=== PATIENT | female | born 1970 | race Caucasian/White ===

== ENCOUNTER 2019-10-03 07:42 | Outpatient (CLI) | payer BC ==
[2019-10-03 10:18] LABS: BASOPHILS % (AUTO) 0.8 %; EOSINOPHILS # (AUTO) 0.2 10^3/uL (0.0-0.7); EOSINOPHILS % (AUTO) 3.5 %; HGB - HEMOGLOBIN 12.8 g/dL (12.0-16.0); LYMPHOCYTES # (AUTO) 1.9 10^3/uL (1.5-3.5); LYMPHOCYTES % (AUTO) 38.4 %; MEAN CORPUSCULAR HEMOGLOBIN 29.8 pg (27.0-31.0); MEAN CORPUSCULAR HGB CONC 31.8 g/dL (32.0-36.0); MEAN CORPUSCULAR VOLUME 93.9 fL (81.0-99.0); MEAN PLATELET VOLUME 11.5 fL (7.9-10.8); MONOCYTES # (AUTO) 0.4 10^3/uL (0.0-1.0); NEUTROPHILS # (AUTO) 2.4 10^3/uL (1.5-6.6); NEUTROPHILS % (AUTO) 48.1 %; PLT - PLATELET COUNT 330 10^3/uL (130-450); RED BLOOD COUNT 4.29 10^6/uL (4.20-5.40); RED CELL DISTRIBUTION WIDTH 13.1 % (12.0-15.0); WHITE BLOOD COUNT 4.9 x10^3/uL (4.8-10.8)
[2019-10-03 10:31] LABS: ALBUMIN 4.5 g/dL (3.2-5.5); ALBUMIN/GLOBULIN RATIO 1.7 (1.0-2.2); ALKALINE PHOSPHATASE 37 IU/L (42-121); ALT ALANINE AMINOTRANSFERASE 23 IU/L (10-60); AST ASPARTATE AMINOTRANSFERASE 21 IU/L (10-42); BILIRUBIN,TOTAL 0.8 mg/dL (0.2-1.0); BUN - BLOOD UREA NITROGEN 18 mg/dL (6-20); CARBON DIOXIDE - CO2 27 mmol/L (21-32); CHLORIDE 102 mmol/L (101-111); CHOL/HDL RATIO 2.3 (<4.4); CHOLESTEROL 230 mg/dL; CREATININE 0.8 mg/dL (0.4-1.0); GFR - MDRD 77 (>89); GLUCOSE 84 mg/dL (70-100); HDL CHOLESTEROL 98 mg/dL; LDL CHOLESTEROL,CALCULATED 123 mg/dL; LDL/HDL RATIO 1.3 (<4.4); SODIUM 137 mmol/L (135-145); TOTAL PROTEIN 7.2 g/dL (6.7-8.2); VLDL CHOLESTEROL 9 mg/dL
[2019-10-03 10:41] LABS: THYROID STIMULATING HORMONE 2.23 uIU/mL (0.34-5.60)
[2019-10-03 10:44] LABS: FREE T4 (FREE THYROXINE) 0.69 ng/dL (0.58-1.64)
== END 2019-10-03 07:43 | disposition home or self-care (01) ==
LOC: LAB.S 07:42
PROVIDERS: ATTEND Physician Assistant
DX: E04.1 Nontoxic single thyroid nodule (principal); Z87.42 Personal history of other diseases of the female genital tract; Z13.220 Encounter for screening for lipoid disorders; Z13.1 Encounter for screening for diabetes mellitus; Z12.4 Encounter for screening for malignant neoplasm of cervix
CPT/HCPCS: 36415; 80053; 80061; 83721; 84439; 84443; 85025

== ENCOUNTER 2020-06-01 07:00 | Outpatient (CLI) | payer OTHER, BC ==
--- NOTE | 2020-06-01 09:49 | XRAY Report ---
PROCEDURE: Foot 3 View LT INDICATIONS: SPRAIN OF TARSAL LIGAMENT LEFT FOOT TECHNIQUE: 3 views of the foot were acquired. COMPARISON: None FINDINGS: Bones: No fractures or dislocations. No suspicious bony lesions. Soft tissues: No tibiotalar joint effusion. Achilles tendon appears normal. IMPRESSION: No acute fracture. No osseous lesion. If symptoms and/or clinical suspicion for pathology continue, f urther assessment with repeat plain films, or advanced imaging (e.g., CT, MRI, or bone scan) is recom mended for further assessment. Reviewed by: Marisela Weaver MD on 06/01/2020 9:48 AM [facility] Approved by: Marisela Weaver MD on 06/01/2020 9:48 AM PST Station ID: [id number]
== END 2020-06-01 23:59 | disposition home or self-care (01) ==
LOC: DI.S 07:00
PROVIDERS: ATTEND Emergency Medicine
DX: S93.612A Sprain of tarsal ligament of left foot, initial encounter (principal)

== ENCOUNTER 2020-07-25 16:04 | Outpatient (CLI) | payer OTHER, BC ==
--- NOTE | 2020-07-25 17:02 | XRAY Report ---
PROCEDURE: Ankle 3 View LT INDICATIONS: SPRAIN OF TARSAL LIGAMENT OF LEFT FOOT TECHNIQUE: 3 views of the ankle were acquired. COMPARISON: None FINDINGS: Bones: No fractures or dislocations. Ankle mortise is normally aligned. No suspicious bony lesions . Soft tissues: No tibiotalar joint effusion. Achilles tendon appears normal. IMPRESSION: No ankle fracture or dislocation. Ankle mortise is congruent. Reviewed by: Giacomo Hays MD on 07/25/2020 5:01 PM PST Approved by: Giacomo Hays MD on 07/25/2020 5:01 PM PST Station ID: [id number]
--- NOTE | 2020-07-25 17:03 | XRAY Report ---
PROCEDURE: Foot 3 View LT INDICATIONS: SPRAIN OF TARSAL LIGAMENT OF LEFT FOOT TECHNIQUE: 3 views of the foot were acquired. COMPARISON: 06/01/2020 FINDINGS: Bones: No fractures or dislocations. No suspicious bony lesions. Soft tissues: No tibiotalar joint effusion. Achilles tendon appears normal. IMPRESSION: No left foot fracture or dislocation is seen. No significant changes from previous study. Reviewed by: Giacomo Hays MD on 07/25/2020 5:01 PM PST Approved by: Giacomo Hays MD on 07/25/2020 5:01 PM PST Station ID: [id number]
== END 2020-07-25 23:59 | disposition home or self-care (01) ==
LOC: DI.S 16:04
PROVIDERS: ATTEND Emergency Medicine
DX: S93.612A Sprain of tarsal ligament of left foot, initial encounter (principal)

== ENCOUNTER 2020-09-26 08:33 | Outpatient (CLI) | payer OTHER, BC ==
--- NOTE | 2020-09-26 13:58 | XRAY Report ---
PROCEDURE: Foot 3 View LT INDICATIONS: LEFT FOOT PAIN TECHNIQUE: 3 views of the foot were acquired. COMPARISON: None FINDINGS: Bones: No fractures or dislocations. No suspicious bony lesions. Soft tissues: No tibiotalar joint effusion. Achilles tendon appears normal. IMPRESSION: No acute fracture. No osseous lesion. If symptoms and/or clinical suspicion for pathology continue, f urther assessment with repeat plain films, or advanced imaging (e.g., CT, MRI, or bone scan) is recom mended for further assessment. Reviewed by: Marisela Weaver MD on 09/26/2020 1:57 PM PST Approved by: Marisela Weaver MD on 09/26/2020 1:57 PM [facility] Station ID: [id number]
== END 2020-09-26 08:34 | disposition home or self-care (01) ==
LOC: DI.N 08:33
PROVIDERS: ATTEND Orthopaedic Surgery
DX: S92.812S Other fracture of left foot, sequela (principal)

== ENCOUNTER 2021-12-29 14:45 | Outpatient (CLI) | payer BC ==
--- NOTE | 2021-12-30 12:39 | Mammography Report ---
BILATERAL DIGITAL SCREENING MAMMOGRAM 3D/2D WITH AUGMENTATION: 12/29/2021 CLINICAL: Routine screening. Baseline exam. No prior exams were available for comparison. The tissue of both breasts is heterogeneously dense. T his may lower the sensitivity of mammography. Bilateral breast implants are intact. There are benign calcifications in the left breast. No significant masses, calcifications, or other findings are seen in either breast. IMPRESSION: BENIGN There is no mammographic evidence of malignancy. A 1 year screening mammogram is recommended. This exam was interpreted at Station ID: [id number]. NOTE: For mammograms, a report in lay terms will be sent to the patient. Approximately 15% of breast malignancies will not be visualized mammographically. In the management of a palpable breast mass, a negative mammogram must not discourage biopsy of a clinically suspicious lesion. Electronically Signed By: Storm [email or web address]/[email or web address]:12/30/2021 12:32:22 ACR BI-RADS Category 2: Benign Finding(s) 3342F C -Heterogeneously dense 2 Mammogram [id number] 1 year screening B
== END 2021-12-29 14:46 | disposition home or self-care (01) ==
LOC: DI.S 14:45
PROVIDERS: ATTEND Physician Assistant
DX: Z12.31 Encounter for screening mammogram for malignant neoplasm of breast (principal)

== ENCOUNTER 2023-01-18 14:37 | Outpatient (CLI) | payer BC ==
--- NOTE | 2023-01-20 10:13 | Mammography Report ---
BILATERAL DIGITAL SCREENING MAMMOGRAM 3D/2D WITH AUGMENTATION: 01/18/2023 CLINICAL: Routine screening. Comparison is made to exam dated: 12/29/2021 mammogram - [facility]. Both breasts are heterogeneously dense, which may obscure small masses (category c / 51-75% glandular tissue). Bilateral breast implants are present. There are benign calcifications in the left breast. All fibr oglandular findings stable. No significant masses, calcifications, or other findings are seen in either breast. There is new irregularity with high density of the left breast implant in the upper outer quadrant. IMPRESSION: BENIGN There is new irregularity with high density of the left breast implant in the upper outer quadrant. C linical followup recommended. If indicated, an implant MRI could be performed to further evaluate. There is no mammographic evidence of malignancy. A 1 year screening mammogram is also recommended. A ll fibroglandular tissue and calcifications appear stable. Based on the Tyrer Cuzick model (a risk assessment model) the patients lifetime risk is 6.6% and her 10 year risk is 1.5%. According to the ACR, ACS, and NCCN guidelines, an annual breast MRI exam felton g with mammogram is recommended if the patients lifetime risk is 20% or greater. This exam was interpreted at Station ID: [id number]. NOTE: For mammograms, a report in lay terms will be sent to the patient. Approximately 15% of breast malignancies will not be visualized mammographically. In the management of a palpable breast mass, a negative mammogram must not discourage biopsy of a clinically suspicious lesion. Electronically Signed By: Florian David M.D. lc/:01/20/2023 08:38:45 letter sent: No_Letter ACR BI-RADS Category 2: Benign Finding(s) 3342F PARENCHYMAL PATTERN: (D) - The breast(s) demonstrate(s) heterogeneously dense fibroglandular arnaldo schuler. BI-RADS CATEGORY: (2) - 2 Mammogram [id number] 1 year screening LATERALITY: (B)
== END 2023-01-18 14:38 | disposition home or self-care (01) ==
LOC: DI.S 14:37
PROVIDERS: ATTEND Physician Assistant
DX: Z12.31 Encounter for screening mammogram for malignant neoplasm of breast (principal); Z98.82 Breast implant status; R92.8 Other abnormal and inconclusive findings on diagnostic imaging of breast